=== PATIENT | female | born 1965 | race Two or more races ===

== ENCOUNTER 2021-08-28 06:00 | Day surgery (SDC) | payer OTHER ==
[~2021-08-28 06:00] MED LIST: AVALIDE 300-121 EACH PO; CRESTOR5 MG PO; JANUMET 50-5001 EACH PO; LEVO-T75 MCG PO; TOPROL XL50 M1 PO; ZETIA10 MG PO
== END 2021-08-28 19:00 | disposition home or self-care (01) ==
LOC: CIR.AMB 06:00
PROVIDERS: ATTEND Surgery
DX: C50.411 Malignant neoplasm of upper-outer quadrant of right female breast (principal); R59.0 Localized enlarged lymph nodes; N62 Hypertrophy of breast; D24.2 Benign neoplasm of left breast; G62.0 Drug-induced polyneuropathy; T45.1X5A Adverse effect of antineoplastic and immunosuppressive drugs, initial encounter; Z92.21 Personal history of antineoplastic chemotherapy; E11.9 Type 2 diabetes mellitus without complications; Z79.84 Long term (current) use of oral hypoglycemic drugs; Z42.1 Encounter for breast reconstruction following mastectomy; Z20.822 Contact with and (suspected) exposure to COVID-19; I10 Essential (primary) hypertension; E03.9 Hypothyroidism, unspecified; D63.0 Anemia in neoplastic disease